=== PATIENT | female | born 1970 | race Caucasian/White ===

== ENCOUNTER 2024-03-08 00:10 | Emergency (ER) | payer MEDICAID ==
[~2024-03-08] VITALS: Ht 157.5 cm; Wt 84.0 kg
[2024-03-08 00:17] VITALS: O2SAT 96
[2024-03-08] MEDS: ACETAMINOPHEN 325MG TABLET PO STA (01:12)
[2024-03-08] MEDS: SODIUM CHLORIDE 0.9% 1,000 ML IV ONE (01:19)
[2024-03-08 01:25] LABS: BASOPHILS % 0.3 % (0.0-2.0); EOSINOPHILS % 3.1 % (0.0-5.0); HEMOGLOBIN. 14.4 g/dL (12.0-16.0); LYMPHOCYTES % 33.9 % (20.0-50.0); MEAN CORPUSCULAR HEMOGLOBIN 28.2 pg (28.0-32.0); MEAN CORPUSCULAR HGB CONC 33.3 g/dL (31.0-37.0); MEAN CORPUSCULAR VOLUME 84.7 fL (81.0-99.0); MEAN PLATELET VOLUME 8.3 fl (7.4-10.4); MONOCYTES % 7.4 % (2.0-8.0); NEUTROPHILS % 55.3 % (40.0-76.0); PLATELET 207 x1000/uL (130-400); RED BLOOD CELL COUNT 5.08 mill/uL (4.2-5.4); RED CELL DISTRIBUTION WIDTH 14.1 % (11.6-14.6); WHITE BLOOD COUNT 6.3 x1000/uL (4.5-11.0)
[2024-03-08 01:34] LABS: CALCIUM 9.4 mg/dL (8.7-10.4)
[2024-03-08 01:57] LABS: POTASSIUM 2.8 mEq/L (3.5-5.1)
[2024-03-08] MEDS: POTASSIUM CHLORIDE 20MEQ/PACKET PO NR (02:46)
[2024-03-08 03:00] VITALS: TEMP 97.9
[2024-03-08] MEDS: KCL 20MEQ/100ML PREMIX 100 ML IV NR (03:06)
[2024-03-08] MEDS: MAGNESIUM 2 G PREMIX 50 ML IV NR (03:31)
[2024-03-08 05:40] VITALS: BP 126/87; PULSE 72; RESP 15
== END 2024-03-08 05:40 | disposition home or self-care (01) ==
LOC: ER 00:10
DX: I10 Essential (primary) hypertension (principal); E87.6 Hypokalemia; Z91.018 Allergy to other foods
CPT/HCPCS: 80048; 85025; 36415; 96368; 96361; 96365; 99284; J3475; J3480; J7030; Z7610